=== PATIENT | female | born 1980 | race Caucasian/White ===

== ENCOUNTER 2024-05-10 02:48 | Emergency (ER) | payer MEDICAID ==
[~2024-05-10] VITALS: Ht 167.6 cm; Wt 109.0 kg
[2024-05-10 02:52] VITALS: O2SAT 100
[2024-05-10] MEDS: ACETAMINOPHEN 325MG TABLET PO ONE (03:45)
[2024-05-10 04:16] LABS: HCG SCREEN NEGATIVE
[2024-05-10] MEDS: KETOROLAC 15MG/ML VIAL IM ONE (04:33)
[2024-05-10 04:40] VITALS: BP 160/95; PULSE 84; RESP 18; TEMP 37.1; O2SAT 100
== END 2024-05-10 05:50 | disposition home or self-care (01) ==
LOC: ER 02:48
DX: G57.10 Meralgia paresthetica, unspecified lower limb (principal)
CPT/HCPCS: 99283; 81025; 84703; 96372; J1885